=== PATIENT | female | born 1985 | race Caucasian/White ===

== ENCOUNTER 2025-07-20 19:26 | Emergency (ER) | payer BC, SELFPAY ==
--- NOTE | ~2025-07-20 | XR_ITS ---
EXAMINATION: XR ankle LT min 3V, 07/20/2025 19:40 CDT HISTORY: ankle pain/injury, LATERAL PAIN COMPARISON: No comparisons available. Findings: No acute fracture or malalignment. No significant degenerative changes. Soft tissues unremarkable. Impression: No acute fracture or malalignment. Reviewed, dictated and finalized at location P. Impression: No acute fracture or malalignment.
--- NOTE | ~2025-07-20 | XR_ITS ---
EXAMINATION: XR foot LT min 3V, 07/20/2025 19:40 CDT HISTORY: foot pain/injury, LAT PAIN COMPARISON: No comparisons available. Findings: No acute fracture or malalignment. No significant degenerative changes. Soft tissues unremarkable. Impression: No acute fracture or malalignment. Reviewed, dictated and finalized at location P. Impression: No acute fracture or malalignment.
--- NOTE | 2025-07-20 19:33 | ED.LOWEXIN ---
HPI - Extremity Injury (Lower) General Chief Complaint: Extremity Injury, Lower Stated Complaint: Left Foot Injury Time Seen by Provider: 07/20/25 19:33 Source: patient Mode of arrival: ambulatory Limitations: no limitations History of Present Illness HPI Narrative: Bita is a 39-year-old female patient presenting to the clinic today with complaints of left foot and ankle pain. She reports she fell asleep when she was getting her hair fixed at the [employer]. 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 Did have swelling to the lateral foot and ankle and took ibuprofen for symptoms. Swelling is improved but patient is having pain with walking. Related Data Home Medications ?Medication ?Instructions ?Recorded ?Confirmed ?Last Taken ?Type sertraline 50 mg tablet mg 07/20/25 Unknown History Allergies Allergy/AdvReac Type Severity Reaction Status Date / Time Sulfa (Sulfonamide Allergy Intermediate Rash Verified 07/20/25 19:39 Antibiotics) Review of Systems Review of Systems: Pertinent positives per HPI. Patient denies any fever, chills, rash, headache, visual changes, dizziness, cough, runny nose, sore throat, shortness of breath, chest pain, palpitations, nausea, vomiting, diarrhea, constipation, abdominal pain, or any urinary issues. PMFSH Comments At the time of my signature, I reviewed and agree with the nursing past medical, surgical, social, and family history. There is no relevant family history pertinent to the patient complaint. Exam Narrative: General: Well-developed, well nourished, in no apparent distress Head: Normocephalic, atraumatic. Cardio: Regular rate and rhythm, s1 and s2 normal, no murmur appreciated. Resp: Clear to auscultation bilaterally, no rhonchi, rales, wheezing or rubs. Musculoskeletal: No deformity, mild swelling noted to the lateral dorsal foot and ankle,tender to palpation over the 5th metatarsal and the distal lateral malleolus, grossly normal range of motion, muscle strength strong and equal, peripheral pulse strong, no edema, no cyanosis, normal gait and station Course Course Emergency Course: Portions of this record may have been created with voice recognition software. Level of Care: Express Care Visit Vital Signs Vital signs: Vital Signs Temperature 36.6 C 07/20/25 19:39 Pulse Rate 88 07/20/25 19:39 Respiratory Rate 16 07/20/25 19:39 Blood Pressure 154/78 H 07/20/25 19:39 Pulse Oximetry 100 07/20/25 19:39 Oxygen Delivery Room Air 07/20/25 19:39 Temperature 36.6 C 07/20/25 19:39 Pulse Rate 88 07/20/25 19:39 Respiratory Rate 16 07/20/25 19:39 Blood Pressure 154/78 H 07/20/25 19:39 Pulse Oximetry 100 07/20/25 19:39 Oxygen Delivery Room Air 07/20/25 19:39 Vital signs reviewed MDM - Extremity Injury (Lower) MDM Narrative Medical decision making narrative: At the time of visit patient is resting comfortably on the exam table. Patient appears to be nontoxic. Complaints of left foot and ankle pain. She reports she fell asleep when she was getting her hair fixed at the [employer]. 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 Did have swelling to the lateral foot and ankle and took ibuprofen for symptoms. Swelling is improved but patient is having pain with walking. On exam patient has mild swelling noted to the lateral dorsal foot and ankle,tender to palpation over the 5th metatarsal and the distal lateral malleolus Diagnostics: X-ray of the left foot and ankle are negative for any sign of fracture or malalignment Plan: I suspect patient has left ankle sprain/left foot sprain. Herman wrap was applied. Sensation, circulation, and motion within normal limits. Supportive measures were discussed with the patient and they voiced understanding discharge instructions and agrees to treatment plan. Return precautions reviewed Differential Diagnosis Differential diagnosis: Likely ankle sprain and strain, fracture of toe, ankle fracture and other (Foot fracture, foot sprain) Imaging Data Radiologist's impression: ITS Impressions Ankle X-Ray 07/20/25 19:51 Impression: No acute fracture or malalignment. Foot X-Ray 07/20/25 19:51 Impression: No acute fracture or malalignment. Discharge Plan Discharge Clinical Impression: Sprain of foot, left Qualifiers: Encounter type: initial encounter Qualified Code(s): S93.602A - Unspecified sprain of left foot, initial encounter Left ankle sprain Qualifiers: Encounter type: initial encounter Involved ligament of ankle: unspecified ligament Qualified Code(s): S93.402A - Sprain of unspecified ligament of left ankle, initial encounter Patient Disposition: Home Condition: Stable Instructions: Antibiotic Form, Ankle Sprain (ED), Foot Sprain (ED) Additional Instructions: X-rays of the left foot and ankle are negative for any sign of fracture or malalignment. Rest, ice, elevate, and wear herman wrap as directed Tylenol/motrin for pain as discussed. Gradually bear weight No running or sports until healed. Follow up with your PCP if symptoms persist more than 1 week. Patient Language: Gabonese Prescriptions: No Action sertraline 50 mg tablet Follow-up/Referrals: Beronica,Steve Eller MD [Primary Care Provider] Time of Disposition: 19:56 Quality NIHSS Nursing Documentation ED NIHSS nursing documentation: reviewed/agree
--- OUTSIDE RECORDS SUMMARY | 2025-07-20 19:36 | XMS_ITS | Encounter Summary ---
Author Organization [facility] Healthcare Address [address] [place] [address] Care Team Providers Care Pet Caretaker Name Role Phone Steve Loco MD Primary Care Provider Encounter Details Date Type Department Care Team (Late st Contact Info) Description 04/24/2020 Telephone [facility] [address] [place] [phone] Rolanda Anderson, Social History Tobacco Use Types Packs/Day Years Used Date Smoking Tobacco: Former Cigarettes Q uit: 04/13/2018 Smokeless Tobacco: Never Comments:Smoking History Pac ks/day: 0.5 Packs Alcohol Use Standard Drinks/Week Comments Yes 0 (1 standard drink = 0.6 oz pur e alcohol) Social PHQ-2 Answer Date Recorded PHQ-2 Total Score (If total score is 3 or more points, staff should administer the PHQ-9) 0 03/21/2020 Comments No Sex and Gender Information Value Date Recorded Sex Assigned at Not on file Legal Sex Female 12:29 AM [employer] Gender Identity Not on file Sexual Orientation Not on file documented as of this encounter Plan of Treatment Not on file documented as of this encounter Visit Diagnoses Not on filedocumented in this encounter Additional Health Concerns Infection Onset Date Last Indicated Resolved Time COVID: Suspected 08/16/2024 08/16/2024 08/16/2024 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
[2025-07-20 19:39] VITALS: BP 154/78; PULSE 88; RESP 16; TEMP 36.6; O2SAT 100
== END 2025-07-20 20:02 | disposition home or self-care (01) ==
PROVIDERS: Emergency Provider Nurse Practitioner Family; PCP Internal Medicine
DX: S93.602A Unspecified sprain of left foot, initial encounter (principal); S93.402A Sprain of unspecified ligament of left ankle, initial encounter; W19.XXXA Unspecified fall, initial encounter
CPT/HCPCS: 73610; 73630; 99203; G0463